=== PATIENT | female | born 1950 | race Caucasian/White ===

== ENCOUNTER → 2023-03-16 09:17 | Outpatient (BNVA) | payer MEDICARE, SELFPAY | PROVIDERS: PCP Nurse Practitioner; Visit Provider Nurse Practitioner | DX: I10 Essential (primary) hypertension (principal); R53.83 Other fatigue | CPT/HCPCS: 80053; 80061; 83001; 84403; 84439; 84443; 84481; 85025; 86038; 86376; 86431 ==

== ENCOUNTER → 2023-03-17 09:43 | Outpatient (BNVA) | payer MEDICARE, SELFPAY | PROVIDERS: PCP Nurse Practitioner; Referring Provider Nurse Practitioner; Visit Provider Nurse Practitioner | DX: I10 Essential (primary) hypertension (principal); R53.83 Other fatigue | CPT/HCPCS: 85025 ==

== ENCOUNTER → 2023-06-15 09:41 | Outpatient (BNVA) | payer MEDICARE, SELFPAY | PROVIDERS: PCP Nurse Practitioner; Referring Provider Nurse Practitioner; Visit Provider Nurse Practitioner Family | DX: D23.5 Other benign neoplasm of skin of trunk (principal); L82.1 Other seborrheic keratosis; D22.5 Melanocytic nevi of trunk; L82.0 Inflamed seborrheic keratosis; L57.8 Other skin changes due to chronic exposure to nonionizing radiation; L91.8 Other hypertrophic disorders of the skin; L81.4 Other melanin hyperpigmentation; L85.3 Xerosis cutis; L30.4 Erythema intertrigo | CPT/HCPCS: 17110; 99204 ==

== ENCOUNTER 2023-09-02 11:37 | Outpatient (CLI) | payer MEDICARE, SELFPAY ==
--- NOTE | 2023-09-02 11:40 | XR_ITS ---
WS: [email or web address] Right hand, 3 views, 09/02/2023 Clinical Data: Z79.899 - Other fpc (current) drug therapy Comparison: None. Findings: No fractures or dislocations are seen. The soft tissues are unremarkable. There is osteoa rthritic change of the second through fifth finger PIP and DIP joints of the right hand. There is ost eoarthritis at the right first MCP joint. 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
--- NOTE | 2023-09-02 11:40 | XR_ITS ---
WS: [email or web address] Left foot, 3 views, 09/02/2023 Clinical Data: Z79.899 - Other joint terminal attack controller (current) drug therapy Comparison: None. Findings: No fractures or dislocations are seen. No bone destruction or erosion is noted. There is osteoarthrit is of the IP joints of the toes of the left foot. There is osteoarthritis of the left first MTP joint . There is osteoarthritis of the tarsal bones.. There is a plantar spur. 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
--- NOTE | 2023-09-02 11:40 | XR_ITS ---
WS: [email or web address] Left hand, Clinical Data: Z79.899 - Other termite treater helper (current) drug therapy Comparison: None. Findings: No fractures or dislocations are seen. The soft tissues are unremarkable. There is osteoarthritis of the second through fifth finger PIP and DIP joints of the hand. There is osteoarthritis of the left t humb IP joint. There is osteoarthritis at the base of the left first metacarpal. 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
--- NOTE | 2023-09-02 11:40 | XR_ITS ---
WS: [email or web address] Right foot, 3 views, 09/02/2023 Clinical Data: Z79.899 - Other senior living (current) drug therapy Comparison: None. Findings: No fractures or dislocations are seen. No bone destruction or erosion is noted. The joint spaces and soft tissues are normal. There is a plantar spur. Impression: Negative right foot.
[2023-09-02 12:39] LABS: Basophils % 0.2 %; Hematocrit 39.3 % (36-47); Lymphocytes # 1.3 10^3/uL (0.8-4.8); Lymphocytes % 9.7 %; Mean Corpuscular HGB Conc 33.1 g/dL (30-55); Mean Corpuscular Volume 90.6 fl (85-98); Mean Platelet Volume 8.7 fL (7.4-10.4); Monocytes # 0.9 10^3/uL (0.2-0.9); Monocytes % 6.8 %; Neutrophils # 10.91 10^3/uL (1.8-7.7); Neutrophils % 82.9 %; Nucleated Red Blood Cells % 0 %; Platelet Count 207 10^3/cmm (157-399); Red Blood Count 4.34 10^6/uL (3.85-5.65); Red Cell Distribution Width 13.2 % (12.1-15.1); White Blood Count 13.15 10^3/uL (3.29-11.43)
[2023-09-02 12:59] LABS: Alanine Aminotransferase 17 U/L (0-33); Albumin Level 4.2 g/dL (3.5-5.2); Alkaline Phosphatase 63 U/L (35-105); Aspartate Amino Transferase 17 U/L (0-32); Globulin 2.4 g/dL (1.3-4.6); Total Bilirubin 0.3 mg/dL (0.15-1.2); Total Protein 6.6 g/dL (6.6-8.7)
[2023-09-02 13:01] LABS: Erythrocyte Sedimentation Rate 10 mm/hr (0-15)
[2023-09-02 13:23] LABS: Hepatitis B Core AB, Total Non-Reactive (Nonreactive); Hepatitis B Surface Antigen Non-Reactive (Nonreactive); Hepatitis C Virus Antibody Non-Reactive (Nonreactive)
[2023-09-02 13:50] LABS: 25 Hydroxy Vitamin D 68 ng/mL (30-100)
[2023-09-05 11:30] LABS: COMPLEMENT COMPONENT C3C 149 mg/dL (83-193); COMPLEMENT COMPONENT C4C 38 mg/dL (15-57)
[2023-09-05 13:24] LABS: Cyclic Citrullinated Peptide <16 UNITS
[2023-09-05 15:24] LABS: COMPLEMENT, TOTAL (CH50) >60 U/mL (31-60)
[2023-09-05 16:24] LABS: CENTROMERE B ANTIBODY <1.0 NEG AI (<1.0 NEG); JO-1 ANTIBODY <1.0 NEG AI (<1.0 NEG); RNP ANTIBODY <1.0 NEG AI (<1.0 NEG); SCL-70 ANTIBODY <1.0 NEG AI (<1.0 NEG); SJOGREN'S ANTIBODY (SS-A) <1.0 NEG AI (<1.0 NEG); SM ANTIBODY <1.0 NEG AI (<1.0 NEG); SS-B <1.0 NEG AI (<1.0 NEG)
[2023-09-06 00:53] LABS: HLA-B27 NEGATIVE (NEGATIVE)
[2023-09-06 11:30] LABS: THYROID PEROXIDASE ANTIBODIES <1 IU/mL (<9)
[2023-09-06 13:03] LABS: Quantiferon Mitogen 3.58 IU/mL; Quantiferon Nil 0.01 IU/mL; Quantiferon TB Gold NEGATIVE (NEGATIVE)
[2023-09-07 10:49] LABS: ANA PATTERN Nuclear, Homogeneous; ANA SCREEN, IFA POSITIVE (NEGATIVE)
[2023-09-07 18:39] LABS: DNA AB (DS) CRITHIDIA,IFA NEGATIVE (NEGATIVE)
== END 2023-09-02 11:38 | disposition home or self-care (01) ==
LOC: LAB 11:38
PROVIDERS: PCP Nurse Practitioner; Visit Provider Internal Medicine Rheumatology
DX: M19.90 Unspecified osteoarthritis, unspecified site (principal); Z79.899 Other long term (current) drug therapy; R76.8 Other specified abnormal immunological findings in serum; Z11.1 Encounter for screening for respiratory tuberculosis; Z11.59 Encounter for screening for other viral diseases; M45.6 Ankylosing spondylitis lumbar region; M19.042 Primary osteoarthritis, left hand; M19.041 Primary osteoarthritis, right hand; M77.32 Calcaneal spur, left foot; M77.31 Calcaneal spur, right foot
CPT/HCPCS: 36415; 73130; 73630; 80076; 82306; 82565; 85025; 85651; 86140; 86160; 86162; 86200; 86235; 86255; 86376; 86431; 86480; 86704; 86803; 86812; 87340

== ENCOUNTER 2024-10-30 14:18 | Outpatient (CLI) | payer MEDICARE, SELFPAY ==
[2024-10-30 14:40] LABS: Basophils % 0.6 %; Eosinophils # 0.1 10^3/uL (0.0-0.8); Eosinophils % 1.5 %; Hematocrit 36.2 % (36-47); Lymphocytes # 1.1 10^3/uL (0.8-4.8); Lymphocytes % 20.3 %; Mean Corpuscular HGB Conc 33.4 g/dL (30-55); Mean Corpuscular Hemoglobin 30.3 pg (27-33); Mean Corpuscular Volume 90.7 fl (85-98); Mean Platelet Volume 8.3 fL (7.4-10.4); Monocytes # 0.6 10^3/uL (0.2-0.9); Monocytes % 11.5 %; Neutrophils # 3.49 10^3/uL (1.8-7.7); Neutrophils % 65.7 %; Nucleated Red Blood Cells % 0 %; Platelet Count 181 10^3/cmm (157-399); Red Blood Count 3.99 10^6/uL (3.85-5.65); Red Cell Distribution Width 14.2 % (12.1-15.1); White Blood Count 5.31 10^3/uL (3.29-11.43)
[2024-10-30 14:57] LABS: Alanine Aminotransferase 19 U/L (0-33); Albumin Level 4.1 g/dL (3.5-5.2); Alkaline Phosphatase 56 U/L (35-105); Aspartate Amino Transferase 21 U/L (0-32); Erythrocyte Sedimentation Rate 11 mm/hr (0-15); Globulin 2.1 g/dL (1.3-4.6); Total Bilirubin 0.4 mg/dL (0.15-1.2); Total Protein 6.2 g/dL (6.6-8.7)
== END 2024-10-30 14:19 | disposition home or self-care (01) ==
LOC: LAB 14:18
PROVIDERS: PCP Nurse Practitioner; Visit Provider Internal Medicine Rheumatology
DX: Z79.899 Other long term (current) drug therapy (principal)
CPT/HCPCS: 36415; 80076; 82565; 85025; 85651; 86140